=== PATIENT | female | born 1950 | race Hispanic/Latino ===

== ENCOUNTER → 2019-03-24 | Outpatient (CLI) | payer OTHER ==
[~2019-03-24] MED LIST: ATOR40TA69 PO; CETI10TA57 PO; DONE10TA43 PO; EMPA10TA PO; GLIP5TAB11 PO; LOSA25TA41 PO; METF-446 PO; OXYB10TA2 PO; SERT100T PO
== END | disposition home or self-care (01) ==
LOC: RAH 08:41
PROVIDERS: ATTEND Internal Medicine Gastroenterology
DX: R94.5 Abnormal results of liver function studies (principal); R93.2 Abnormal findings on diagnostic imaging of liver and biliary tract; Z90.49 Acquired absence of other specified parts of digestive tract; Z90.5 Acquired absence of kidney
CPT/HCPCS: 76700

== ENCOUNTER 2022-12-09 11:43 | Emergency (ER) | payer OTHER ==
[~2022-12-09] VITALS: Ht 152.4 cm; Wt 69.9 kg
[~2022-12-09 11:43] MED LIST changes: -OXYB10TA2 PO; +OXYB10TA30 PO
[2022-12-09 12:15] VITALS: BP 150/69; PULSE 66; RESP 18
[2022-12-09] MEDS ORDERED: KETOROLAC 60 MG VIAL (30MG/ML) IM ONE (13:00)
[2022-12-09] MEDS ORDERED: IBUP-2070 PO (13:45)
[2022-12-09] MEDS ORDERED: ACET-2079 PO (13:45)
== END 2022-12-09 14:08 | disposition home or self-care (01) ==
LOC: EDH 11:43
DX: S42.92XA Fracture of left shoulder girdle, part unspecified, initial encounter for closed fracture (principal); I10 Essential (primary) hypertension; E11.9 Type 2 diabetes mellitus without complications; E78.00 Pure hypercholesterolemia, unspecified; F32.A Depression, unspecified; Z90.49 Acquired absence of other specified parts of digestive tract; Z90.89 Acquired absence of other organs; Z90.710 Acquired absence of both cervix and uterus; Z79.84 Long term (current) use of oral hypoglycemic drugs; Z79.899 Other long term (current) drug therapy; Z98.890 Other specified postprocedural states; Z88.1 Allergy status to other antibiotic agents; Z88.2 Allergy status to sulfonamides; Z88.5 Allergy status to narcotic agent; X58.XXXA Exposure to other specified factors, initial encounter; Y93.89 Activity, other specified; Y92.89 Other specified places as the place of occurrence of the external cause; Y99.8 Other external cause status
CPT/HCPCS: 99284; 29105; 73080; 73030; 73110; 96372; J1885